=== PATIENT | male | born 1980 | race Hispanic/Latino ===

== ENCOUNTER 2017-09-30 13:25 | Emergency (ER) | payer BC ==
[~2017-09-30] VITALS: Ht 165.1 cm; Wt 82.5 kg
[~2017-09-30 13:25] MED LIST: ADVIL200 MG PO; LISINOPRIL10 MG PO; METFORMIN HCL500 MG PO; PRAVASTATIN SOD10 MG PO
[2017-09-30] MEDS ORDERED: NORCO 5-325 TA1 EACH PO (18:40)
[2017-09-30] MEDS ORDERED: CIPRO500 MG PO (18:40)
[2017-09-30] MEDS ORDERED: FLAGYL500 MG PO (18:40)
[2017-12-14] MEDS ORDERED: GLYBURIDE5 MG PO (12:18)
[2017-12-14] MEDS ORDERED: SIMVASTATIN80 MG PO (12:18)
== END 2017-09-30 19:10 | disposition home or self-care (01) ==
LOC: ED 13:25
DX: K57.32 Diverticulitis of large intestine without perforation or abscess without bleeding (principal); E11.9 Type 2 diabetes mellitus without complications; I10 Essential (primary) hypertension; Z87.891 Personal history of nicotine dependence; Z90.49 Acquired absence of other specified parts of digestive tract; Z79.84 Long term (current) use of oral hypoglycemic drugs; Z79.899 Other long term (current) drug therapy
CPT/HCPCS: 74177; 80053; 81001; 83690; 85025; 96374; 99284; J0696; Q9967

== ENCOUNTER 2020-01-31 21:40 | Emergency (ER) | payer BC ==
[~2020-01-31] VITALS: Ht 165.1 cm; Wt 81.7 kg
[~2020-01-31 21:40] MED LIST changes: +CIPRO500 MG PO; +FLAGYL500 MG PO; +GLYBURIDE5 MG PO; +NORCO 5-325 TA1 EACH PO; +SIMVASTATIN80 MG PO
[2020-01-31] MEDS ORDERED: ATORVASTATIN CA80 MG PO (21:54)
[2020-01-31] MEDS ORDERED: OMEGA-3 ACID ETH1 GM PO (21:55)
[2020-01-31] MEDS ORDERED: RYBELSUS7 MG PO (21:55)
[2020-01-31] MEDS ORDERED: FENOFIBRATE48 MG PO (21:55)
[2020-01-31] MEDS ORDERED: METOCLOPRAMIDE H5 MG PO (21:55)
--- NOTE | 2020-02-01 13:47 | EKG ---
[facility] [address] [place], [place] [address] Signed Normal sinus rhythm with sinus arrhythmia Rightward axis Nonspecific T wave abnormality Abnormal ECG No previous ECGs available Confirmed by JOHN MCALLISTER DO ([id number]) on 02/01/2020 1:47:28 PM Electronically Signed By: JOHN MCALLISTER DO 02/01/20 1347 PATIENT NAME: ALIS DUVALL Electrocardiogram DATE OF : 82 PHYSICIAN: JOHN MCALLISTER DO REPORT #: [id number] REPORT IS CONFIDENTIAL AND NOT TO BE RELEASED WITHOUT AUTHORIZATION
== END 2020-01-31 23:10 | disposition home or self-care (01) ==
LOC: ED 21:40
DX: I49.3 Ventricular premature depolarization (principal); J06.9 Acute upper respiratory infection, unspecified; E11.9 Type 2 diabetes mellitus without complications; I10 Essential (primary) hypertension; E78.00 Pure hypercholesterolemia, unspecified; F17.200 Nicotine dependence, unspecified, uncomplicated; Z90.49 Acquired absence of other specified parts of digestive tract; Z90.89 Acquired absence of other organs; Z88.8 Allergy status to other drugs, medicaments and biological substances; Z79.84 Long term (current) use of oral hypoglycemic drugs; Z79.899 Other long term (current) drug therapy
CPT/HCPCS: 87502; 93005; 93010; 99285-25